=== PATIENT | female | born 1990 | race Caucasian/White ===

== ENCOUNTER 2025-07-24 15:00 | Outpatient (RCR) | payer OTHER, SELFPAY | END 2025-07-24 23:59 | disposition home or self-care (01) | LOC: PT 15:00 | PROVIDERS: Visit Provider Nurse Practitioner Family | DX: R60.9 Edema, unspecified (principal) | CPT/HCPCS: 97140; 97163 ==

== ENCOUNTER 2025-08-18 10:00 | Outpatient (RCR) | payer MEDICAID, SELFPAY | END 2025-08-18 23:59 | disposition home or self-care (01) | LOC: PT 10:00 | PROVIDERS: Visit Provider Nurse Practitioner Family | DX: N30.90 Cystitis, unspecified without hematuria (principal); R60.9 Edema, unspecified | CPT/HCPCS: 97140 ==

== ENCOUNTER 2025-09-22 15:14 | Outpatient (RCR) | payer MEDICAID, SELFPAY | END 2025-09-22 23:59 | disposition home or self-care (01) | LOC: PT 15:14 | PROVIDERS: Visit Provider Nurse Practitioner Family | DX: R60.9 Edema, unspecified (principal) | CPT/HCPCS: 97140 ==